=== PATIENT | male | born 1965 | race Caucasian/White ===

== ENCOUNTER 2017-03-23 16:35 | Emergency (ER) | payer MEDICAID ==
[~2017-03-23] VITALS: Ht 180.3 cm; Wt 81.6 kg
[~2017-03-23 16:35] MED LIST: AMOXICILLIN500 M2 PO; AUGMENTIN1 TA2 PO; BACTRIM DS 8001 TA1 PO; DARVOCET-N 1001 EACH PO; ETODOLAC200 MG PO; FLEXERIL10 MG PO; HYDROCODONE-APA1 TA2 PO; HYDROCODONE1 TABLET PO; IBU-8800 MG PO; LORTAB 10/3251 TAB PO; LORTAB 5/500 501 TAB PO; MEDROL 4MG. DOSE4 MG PO; MOTRIN600 MG PO; NAPROSYN 500MG500 MG PO; NAPROXEN SODIU500 MG PO; NOMEDS XX; PREDNISONE 10MG10 MG PO; PROTONIX 40MG T40 MG PO; SILVADENE CREAM50 GM TP; TAMIFLU75 MG PO; TESSALON PERLE100 MG PO; TRAMADOL50 M1 PO; ULTRAM 50 MG TA50 MG PO; VIBRAMYCIN 100100 MG PO; VICODIN 5/500 T1 TAB PO; VICOPROFEN 7.51 TAB PO; VOLTAREN75 MG PO; ZITHROMAX Z PA250 MG PO; ZOFRAN ODT4 MG PO
--- NOTE | 2017-03-23 16:59 | Emergency Room Report ---
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 N Clinical Suspician of Infection? N Mental Status: 1 - Regular (Normal Baseline) Sepsis Risk:Low Sepsis Risk Have you (or family members/close friends) recently traveled outside the [place]? N If Yes, where/when: Have you had exposure to infectious disease within the past month? N TB? Other? Specify: Source patient, RN notes reviewed, family, RN/MD Exam Limitations no limitations Comment This is a 51-year-old male patient arriving to the emergency room with neck pain, RIGHT shoulder pain, RIGHT elbow pain, RIGHT dorsal hand pain for the past 3 days. 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 Patient has any neurological deficit the RIGHT upper extremity. ALLERGIES Coded Allergies: hydrocodone (From LORTAB) (ITCHING/HIVES/STOMACH ACHE 12/18/15) History Medical History General CAD? No Angina: No [place]: No Hypertension? Yes Hyperlipidemia? No CHF? No DVT? No PE? No COPD? No Asthma? No Anemia? No GERD? No Gastric ulcers? No GI Bleed? No Hernia? No Thyroid Problems? No Hypothyroidism? No CVA? No Seizures? No Diabetes? No Insulin Dependent: No Insulin Pump: No Home FSBS? No Renal Insuffiency? No End Stage Renal Disease? No UTI? No Stones? No BPH? No GB Disease: Yes Nephritic Syndrome? No Asplenia? No Hepatitis? No Sickle Cell Disease? No Arthritis? Yes Migraines? No Cataracts? No Glaucoma? No MRSA? No HIV? No TB? No Anxiety? No Depression? No Cancer? No More? No Immunization Hx DT/Tetanus < 1 Year Ago Flu Refused Pneumonia Never Had Surgical Hx Previous Surgery?Y OPEN REDUCTION ON RIGHT H Cholecystectomy Family History Family Hx Diabetes Yes CAD Yes Hypertension Yes Hyperlipidemia Yes Cancer Yes TB No Social History Smoking Hx Smoker: Current Every Day Smoker Tobacco: Yes Type Cigarettes Packs/day 1 1/2 - 2 Packs Alcohol Alcohol: No Review of Systems All Other Systems Reviewed and Negative Musculoskeletal joint pain (RIGHT upper extremity pain), neck pain Physical Exam Vital Signs Vital Signs Date Time Temp Pulse Resp B/P Pulse O2 O2 Flow FiO2 Ox Delivery Rate 03/23 1640 97.8 88 18 154/96 99 General Appearance normal appearance, WD/WN, mild distress Neck normal inspection, non-tender, supple, full range of motion Respiratory Status Yes: trachea midline, chest symmetrical, non tender chest. No: respiratory distress. Lung Sounds bilateral: normal breath sounds, lungs clear. 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 No Comment Patient medically stable, in minimal distress, instructed to follow-up with Dr. Forbes per discharge instructions. Results/Orders Current Medication Orders Sig/Edgardo Start time Last Medication Dose Route Stop Time Status Admin Methylprednisolone 80 MG ONCE ONE 03/23 1700 AC Acetate IM 03/23 170 Departure Departure Time of Disposition 1658 Disposition DC Home or Self Care(routine) Clinical Impression Primary Impression: Tendinitis Condition STABLE Referrals Andrei FLYNN,Nazario Maynard (Family) as scheduled, if not better by the tiem of this appointment Patient Instructions DI for Tendinitis Additional Instructions Please take the medications prescribed as instructed, follow-up with Dr. Still if not better. Discharge Counseling Counseled pt/family regarding diagnosis, medications/RX, home care, follow up needs ED Critical Care Critical Care No at 1704
--- NOTE | 2017-03-23 16:59 | Emergency Room Report ---
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 N Clinical Suspician of Infection? N Mental Status: 1 - Regular (Normal Baseline) Sepsis Risk:Low Sepsis Risk Have you (or family members/close friends) recently traveled outside the [place]? N If Yes, where/when: Have you had exposure to infectious disease within the past month? N TB? Other? Specify: Source patient, RN notes reviewed, family, RN/MD Exam Limitations no limitations Comment This is a 51-year-old male patient arriving to the emergency room with neck pain, RIGHT shoulder pain, RIGHT elbow pain, RIGHT dorsal hand pain for the past 3 days. 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 Patient has any neurological deficit the RIGHT upper extremity. ALLERGIES Coded Allergies: hydrocodone (From LORTAB) (ITCHING/HIVES/STOMACH ACHE 12/18/15) History Medical History General CAD? No Angina: No [place]: No Hypertension? Yes Hyperlipidemia? No CHF? No DVT? No PE? No COPD? No Asthma? No Anemia? No GERD? No Gastric ulcers? No GI Bleed? No Hernia? No Thyroid Problems? No Hypothyroidism? No CVA? No Seizures? No Diabetes? No Insulin Dependent: No Insulin Pump: No Home FSBS? No Renal Insuffiency? No End Stage Renal Disease? No UTI? No Stones? No BPH? No GB Disease: Yes Nephritic Syndrome? No Asplenia? No Hepatitis? No Sickle Cell Disease? No Arthritis? Yes Migraines? No Cataracts? No Glaucoma? No MRSA? No HIV? No TB? No Anxiety? No Depression? No Cancer? No More? No Immunization Hx DT/Tetanus < 1 Year Ago Flu Refused Pneumonia Never Had Surgical Hx Previous Surgery?Y OPEN REDUCTION ON RIGHT H Cholecystectomy Family History Family Hx Diabetes Yes CAD Yes Hypertension Yes Hyperlipidemia Yes Cancer Yes TB No Social History Smoking Hx Smoker: Current Every Day Smoker Tobacco: Yes Type Cigarettes Packs/day 1 1/2 - 2 Packs Alcohol Alcohol: No Review of Systems All Other Systems Reviewed and Negative Musculoskeletal joint pain (RIGHT upper extremity pain), neck pain Physical Exam Vital Signs Vital Signs Date Time Temp Pulse Resp B/P Pulse O2 O2 Flow FiO2 Ox Delivery Rate 03/23 1640 97.8 88 18 154/96 99 General Appearance normal appearance, WD/WN, mild distress Neck normal inspection, non-tender, supple, full range of motion Respiratory Status Yes: trachea midline, chest symmetrical, non tender chest. No: respiratory distress. Lung Sounds bilateral: normal breath sounds, lungs clear. 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 No Comment Patient medically stable, in minimal distress, instructed to follow-up with Dr. Forbes per discharge instructions. Results/Orders Current Medication Orders Sig/Edgardo Start time Last Medication Dose Route Stop Time Status Admin Methylprednisolone 80 MG ONCE ONE 03/23 1700 AC Acetate IM 03/23 170 Departure Departure Time of Disposition 1658 Disposition DC Home or Self Care(routine) Clinical Impression Primary Impression: Tendinitis Condition STABLE Referrals Andrei FLYNN,Nazario Maynard (Family) as scheduled, if not better by the tiem of this appointment Patient Instructions DI for Tendinitis Additional Instructions Please take the medications prescribed as instructed, follow-up with Dr. Still if not better. Discharge Counseling Counseled pt/family regarding diagnosis, medications/RX, home care, follow up needs ED Critical Care Critical Care No at 1704
[2017-03-23 17:09] VITALS: BP 148/88
[2017-03-23] MEDS ORDERED: ETODOLAC200 MG PO (17:13)
== END 2017-03-23 17:14 | disposition home or self-care (01) ==
LOC: ER 16:35
DX: M77.9 Enthesopathy, unspecified (principal)
CPT/HCPCS: J1030

== ENCOUNTER 2017-05-09 11:15 | Emergency (ER) | payer MEDICAID ==
[~2017-05-09] VITALS: Ht 180.3 cm; Wt 78.9 kg
--- NOTE | 2017-05-09 11:33 | Emergency Room Report ---
History of Present Illness Time Seen by [id number] Presenting Problem in Triage Pt arrived:Walked Presenting Problem:PT REPORTS HAVING PAIN IN KELLEY LOWER LUNGS. PT DESCRIBES PAIN "PULLING AND STRETCHING" FEELING. PT REPORTS PAIN BEGAN LASTNIGHT. PT STATES HAS A DRY COUGH. 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 N Clinical Suspician of Infection? N Mental Status: 1 - Regular (Normal Baseline) Sepsis Risk:Low Sepsis Risk Have you (or family members/close friends) recently traveled outside the [place]? N If Yes, where/when: Have you had exposure to infectious disease within the past month? N TB? Other? Specify: Dry cough with some bronchospasm since last night; no sputum or fever; having pain in right back when coughing; no calf pain or swelling; no SOB. No chest pain. No syncope. No sore throat. ALLERGIES Coded Allergies: hydrocodone (From LORTAB) (ITCHING/HIVES/STOMACH ACHE 12/18/15) Home Medications Reported Medications No Known Home Medications History Medical History General CAD? No Angina: No [place]: No Hypertension? Yes Hyperlipidemia? No CHF? No DVT? No PE? No COPD? No Asthma? No Anemia? No GERD? No Gastric ulcers? No GI Bleed? No Hernia? No Thyroid Problems? No Hypothyroidism? No CVA? No Seizures? No Diabetes? No Insulin Dependent: No Insulin Pump: No Home FSBS? No Renal Insuffiency? No End Stage Renal Disease? No UTI? No Stones? No BPH? No GB Disease: Yes Nephritic Syndrome? No Asplenia? No Hepatitis? No Sickle Cell Disease? No Arthritis? Yes Migraines? No Cataracts? No Glaucoma? No MRSA? No HIV? No TB? No Anxiety? No Depression? No Cancer? No More? No Immunization Hx DT/Tetanus < 1 Year Ago Flu Refused Pneumonia Never Had Surgical Hx Previous Surgery?Y OPEN REDUCTION ON RIGHT H Cholecystectomy Family History Family Hx Diabetes Yes CAD Yes Hypertension Yes Hyperlipidemia Yes Cancer Yes TB No Social History Smoking Hx Smoker: Current Every Day Smoker Tobacco: Yes Type Cigarettes Packs/day 1 1/2 - 2 Packs Are you/the child exposed to second-hand smoke: Yes Alcohol Alcohol: No Review of Systems All Other Systems Reviewed and Negative Respiratory see HPI Physical Exam Vital Signs Vital Signs Date Time Temp Pulse Resp B/P Pulse O2 O2 Flow FiO2 Ox Delivery Rate 05/09 1147 22 05/09 1118 98.1 63 22 147/83 99 General Appearance normal appearance, WD/WN, no apparent distress Eye Exam - bilateral eye normal exam, bilateral eye PERRL, bilateral eye EOMI Neck normal inspection, non-tender, supple, full range of motion Respiratory Status Yes: trachea midline, chest symmetrical, tender on palpation. No: respiratory distress, non tender chest (tender R lat), use of accessory muscles, pain on inspiration, pain on expiration, productive cough, non productive cough. Lung Sounds bilateral: normal breath sounds, lungs clear. Cardiovascular normal exam, regular rate/rhythm, no peripheral edema, no gallop, no JVD, no murmur, no rub, normal peripheral pulses Gastrointestinal normal bowel sounds, normal exam, non tender, soft, no organomegaly, no pulsatile mass, no guarding, no rebound Back bowel/bladder continent, muscle spasm (R lat) Extremities non-tender, normal range of motion, normal inspection, normal capillary refill, no calf tenderness, no pedal edema Strength 5 Upper Ext (L), 5 Upper Ext (R), 5 Lower Ext (L), 5 Lower Ext (R) Neurologic alert, normal exam, no motor/sensory deficits, oriented x 3 Glascow Coma Scale Glascow Coma Scale Response Value EYE response: 4 Spontaneously 4 MOTOR response: 6 OBEYS 6 VERBAL response: 5 Oriented & Converses 5 Total 15 Skin intact, normal color, warm/dry Medical Decision Making LABS/Meds/Orders Pt receiving controlled substance in ED? No Results/Orders Current Medication Orders Sig/Edgardo Start time Last Medication Dose Route Stop Time Status Admin Ketorolac 0 .STK-MED ONE 05/09 1146 DC Tromethamine .ROUTE Ketorolac 60 MG ONCE ONE 05/09 1145 DC 05/09 Tromethamine IM 05/09 114 1147 Orders Procedure Date/time Status CHEST(2 VIEWS-NOT PORTABLE) 05/09 1127 Active XRAY/CT/US XRAY/CT/US XRAY chest XR interpretation by reviewed by me Xray Results normal/NAD, no infiltrates, normal heart size, normal lung inflation kelley (calcifications, small) Pulmonary Embolism Score WELL'S CRITERIA FOR PE WELL'S CRITERIA FOR PE Response Value Clinical signs/symptoms of DVT NO 0 PE is #1 diagnosis or equally likely NO 0 Heart rate is > 100 NO 0 Immobile at least 3 days, or surgery in past 4 wks NO 0 Previously, obj. diagnosed PE or DVT NO 0 Hemoptysis NO 0 Malignancy w/Rx within 6mo, or palliative NO 0 Total 0 Departure Departure Time of Disposition 1227 Disposition DC Home or Self Care(routine) Clinical Impression Primary Impression: Cough Condition STABLE Referrals Andrei FLYNN,Aditya Maynard Patient Instructions Cough Additional Instructions Zithromax, see your family doctor in two to three days, Rx Naproxen. Discharge Counseling Counseled pt/family regarding diagnosis, test results, medications/RX, home care, follow up needs Prescriptions Current Visit Scripts Azithromycin (Avpak Azithromycin) 250 MG PO DAILY #6 TAB One Zpack over five days as directed NAPROXEN (NAPROXEN 500MG TAB) 500 MG PO BIDP PRN pain #20 TAB ED Critical Care Critical Care No at 1230
[2017-05-09] MEDS ORDERED: NAPROXEN SODIU500 MG PO (12:28)
[2017-05-09] MEDS ORDERED: AVPAK AZITHROM250 MG PO (12:28)
[2017-05-09 12:54] VITALS: BP 147/83
--- NOTE | 2017-05-09 17:59 | RADIOLOGY REPORT PS360 ---
CHEST(2 VIEWS-NOT PORTABLE) HISTORY: PAIN IN KELLEY LUNG AREAS, COUGHpersistent cough. Patient Age: 51 years: Male Ordering Physician: Iman Gamboa MD TECHNIQUE: PA and lateral chest COMPARISON :Previous chest film from 12/17/2015 FINDINGS Otherwise was fairly clear with no active disease. Peripheral lung kaba unremarkable and stable. Clear. The heart myriam and mediastinal structures satisfactory. 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 The chest wall and T-spine intact. IMPRESSION: Stable chest nothing definitely acute
== END 2017-05-09 12:55 | disposition home or self-care (01) ==
LOC: ER 11:15
DX: R05 Cough (principal); F17.210 Nicotine dependence, cigarettes, uncomplicated; I10 Essential (primary) hypertension

== ENCOUNTER 2017-06-05 18:01 | Emergency (ER) | payer MEDICAID ==
[~2017-06-05] VITALS: Ht 180.3 cm; Wt 77.1 kg
[~2017-06-05 18:01] MED LIST changes: +AVPAK AZITHROM250 MG PO
[2017-06-05 18:21] LABS: URINE BILIRUBIN - DIPSTICK NEGATIVE (NEG); URINE BLOOD NEGATIVE (NEG)
[2017-06-05] MEDS ORDERED: IBU800 MG PO (18:30)
[2017-06-05] MEDS ORDERED: ZITHROMAX Z PA250 MG PO (18:30)
[2017-06-05] MEDS ORDERED: TESSALON PERLE100 M1 PO (18:30)
--- NOTE | 2017-06-05 18:31 | Emergency Room Report ---
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 N Clinical Suspician of Infection? N Mental Status: 1 - Regular (Normal Baseline) Sepsis Risk:Low Sepsis Risk Have you (or family members/close friends) recently traveled outside the [place]? N If Yes, where/when: Have you had exposure to infectious disease within the past month? N TB? Other? Specify: 51 years old white male smoker who developed upper respiratory congestion associated with cough productive of yellow-green material. It hurts to cough and his back. Source patient, RN notes reviewed Exam Limitations no limitations ALLERGIES Coded Allergies: hydrocodone (From LORTAB) (ITCHING/HIVES/STOMACH ACHE 12/18/15) Home Medications Active Scripts Azithromycin (Avpak Azithromycin) 250 MG PO DAILY #6 TAB Prov: 05/09/17 NAPROXEN (NAPROXEN 500MG TAB) 500 MG PO BIDP PRN pain #20 TAB Prov: 05/09/17 History Medical History General CAD? No Angina: No [place]: No Hypertension? Yes Hyperlipidemia? No CHF? No DVT? No PE? No COPD? No Asthma? No Anemia? No GERD? No Gastric ulcers? No GI Bleed? No Hernia? No Thyroid Problems? No Hypothyroidism? No CVA? No Seizures? No Diabetes? No Insulin Dependent: No Insulin Pump: No Home FSBS? No Renal Insuffiency? No End Stage Renal Disease? No UTI? No Stones? No BPH? No GB Disease: Yes Nephritic Syndrome? No Asplenia? No Hepatitis? No Sickle Cell Disease? No Arthritis? Yes Migraines? No Cataracts? No Glaucoma? No MRSA? No HIV? No TB? No Anxiety? No Depression? No Cancer? No More? No Immunization Hx DT/Tetanus < 1 Year Ago Flu Refused Pneumonia Never Had Surgical Hx Previous Surgery?Y OPEN REDUCTION ON RIGHT H Cholecystectomy Family History Family Hx Diabetes Yes CAD Yes Hypertension Yes Hyperlipidemia Yes Cancer Yes TB No Social History Smoking Hx Smoker: Current Every Day Smoker Tobacco: Yes Type Cigarettes Packs/day 1 1/2 - 2 Packs Alcohol Alcohol: No Review of Systems All Other Systems Reviewed and Negative Constitutional no symptoms reported Eyes no symptoms reported ENT no symptoms reported. Respiratory see HPI, cough Cardiovascular no symptoms reported Gastrointestinal no symptoms reported Genitourinary no symptoms reported. Musculoskeletal no symptoms reported Skin no symptoms reported Psychiatric/Neurological no symptoms reported Physical Exam Vital Signs Vital Signs Date Time Temp Pulse Resp B/P Pulse O2 O2 Flow FiO2 Ox Delivery Rate 06/05 1805 97.9 80 18 172/97 98 - WBC >12,000 or <4,000 or 10% bands? 2 or more SIRS Criteria Met? B/P:172/97 MAP:122 Creatinine >2.0? UA output<0.5ml/kg/hr for 2 hrs? Platelet count >100,000? Lactate >2.0mmol/1? INR >1.2 or PTT > than 60 sec? Evidence of Organ Dysfunction? Provider documented clinical suspician of infection? N Sepsis Criteria Count: 0 Sepsis Risk: Low Sepsis Risk General Appearance normal appearance, WD/WN Eye Exam - bilateral eye normal exam, bilateral eye PERRL, bilateral eye EOMI Ear, Nose, Throat hearing grossly normal, normal ENT inspection Neck normal inspection, non-tender, supple, full range of motion Respiratory Status Yes: trachea midline, chest symmetrical, non tender chest. No: respiratory distress. Lung Sounds bilateral: normal breath sounds, lungs clear. 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 No Results/Orders Laboratory Tests 06/05/171814: Urine Color YELLOW, Urine Appearance SL CLOUDY, Urine pH 6.0, Ur Specific [place] 1.020, Urine Protein NEGATIVE, Urine Ketones NEGATIVE, Urine Blood NEGATIVE, Urine Nitrate NEGATIVE, Urine Bilirubin NEGATIVE, Urine Urobilinogen 1.0, Ur Leukocyte Esterase NEGATIVE, Urine WBC 5-10, Urine Bacteria 3+, Urine Mucus 4+, Urine Glucose NEGATIVE 06/05/171810: Sodium Cancelled, Potassium Cancelled, Chloride Cancelled, Carbon Dioxide Cancelled, BUN Cancelled, Creatinine Cancelled, Estimated Creat Clear Cancelled, Estimated GFR (MDRD) Cancelled, Glucose Cancelled, Calcium Cancelled, Total Bilirubin Cancelled, AST Cancelled, ALT Cancelled, Alkaline Phosphatase Cancelled, Total Protein Cancelled, Albumin Cancelled, Globulin Cancelled, Albumin/Globulin Ratio Cancelled, WBC Cancelled, RBC Cancelled, Hgb Cancelled, Hct Cancelled, MCV Cancelled, RDW Cancelled, Plt Count Cancelled, Gran % Cancelled, Gran # Cancelled, Lymphocytes % Cancelled, Eosinophils % Cancelled, Basophils % Cancelled, Lymphocytes # Cancelled, Eosinophils # Cancelled, Basophils # Cancelled, PUBS MCHC Cancelled, MCH Cancelled Current Medication Orders Sig/Edgardo Start time Last Medication Dose Route Stop Time Status Admin Sodium Chloride 10 ML PRN PRN 06/05 1815 DC IV 06/06 1811 Orders Procedure Date/time Status URINALYSIS/COMPLETE 06/05 1811 Complete Departure Departure Time of Disposition 1827 Disposition DC Home or Self Care(routine) Clinical Impression Primary Impression: URTI (acute upper respiratory infection) Secondary Impressions: Bronchitis, Tobacco use Condition STABLE Referrals Andrei FLYNN,Nazario Maynard (Family) Additional Instructions The patient requested antibiotic injection he will be given Rocephin and Toradol for body aches. Started on Z-Grzegorz and cough medicine. He will need to stop smoking and follow-up with Dr. Still in the morning. Discharge Counseling Counseled pt/family regarding diagnosis, test results, medications/RX, home care, follow up needs Prescriptions Current Visit Scripts Azithromycin (Zithromycin (Z-GRZEGORZ) 250MG Tab) 250 MG PO DAILY #6 TAB Ibuprofen (MOTRIN 800MG (generic) Tablet) 800 MG PO Q8HP PRN pain #15 TAB Benzonatate (Tessalon Perle) 100 MG PO Q4HP PRN cough #28 SGL ED Critical Care Critical Care No If Critical Care minutes are documented, the time involved in the performance of seperately reportable procedures was not counted toward critical care time documented. I directly delivered medical care to this critically ill and/or injured patient. Timely evaluation and treatment was necessary to address the significant organ system(s) dysfunction present in this patient. at [id number]
[2017-06-05 18:52] VITALS: BP 164/88
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
--- OUTSIDE RECORDS SUMMARY | 2017-06-10 21:49 | External Medical Summary Rpt ---
Author Author ANNEL Tsang, ANNEL Production Organization [employer] Address Unknown Phone Unavailable Results Urinalysis dipstick W Reflex Microscopic panel in Urine Observa Value Referen Units Interpr Notes Date tion ce etation Range Appeara SL CLEAR No No No May 8 nce of CLOUDY informa informa informa 2017 Urine tion in tion in tion in 6:15 PM source source source data data data Bilirub NEGATIV NEG No No No Jun 05 in E informa informa informa 2016 [Presen tion in tion in tion in 6:15 PM ce] in source source source Urine data data data by Test strip Erythro NEGATIV NEG No No No May 8 cytes E informa informa informa 2016 [Presen tion in tion in tion in 6:15 PM ce] in source source source Urine data data data Color YELLOW YELLOW No No No May 8 of informa informa informa 2016 Urine tion in tion in tion in 6:15 PM source source source data data data Glucose NEG No No No May 8 [Mass/vol informati informati informati 2017 6:15 ume] in on in on in on in PM Urine by source source source Test data data data strip Ketones NEGATIV NEG mg/dL No No May 8 E informa informa 2016 [Presen tion in tion in 6:15 PM ce] in source source Urine data data by Automat ed test strip Mucus NEGATIV NEG No No No May 8 [Presen E informa informa informa 2016 ce] in tion in tion in tion in 6:15 PM Urine source source source sedimen data data data t by Light microsc opy Nitrite NEGATIV NEG No No No May 8 E informa informa informa 2016 [Presen tion in tion in tion in 6:15 PM ce] in source source source Urine data data data by Test strip pH of 5.0 - 8.5 No Normal No Oct 8 Urine informati informati 2017 6:15 on in on in PM source source data data Protein NEG mg/dL No No May 8 [Mass/vol informati informati 2017 6:15 ume] in on in on in PM Urine by source source Automated data data test strip Specific 1.005 - No Normal No Jun 05 gravity 1.030 informati informati 2017 6:15 of Urine on in on in PM source source data data Urobili 1.0 NEG E.U./dL No No Jun 05 nogen informa informa 2017 [Presen tion in tion in 6:15 PM ce] in source source Urine data data by Test strip
--- OUTSIDE RECORDS SUMMARY | 2017-06-10 21:49 | External Medical Summary Rpt ---
Author Author ANNEL Tasng, ANNEL Production Organization [employer] Address Unknown [...]
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
--- OUTSIDE RECORDS SUMMARY | 2017-06-10 21:49 | External Medical Summary Rpt | CCD ---
Demographics Preferred Language Citizen Of [place] Marital Status Unknown Yazdanism Affiliation Unknown Race Unknown Ethnic Group Unknown Author Author , ANNEL UP Address Unknown Phone Immunization Unable to retrieve immunization data due to connection failure with Immunization Registry. Please try again later.
--- OUTSIDE RECORDS SUMMARY | 2017-06-10 21:49 | External Medical Summary Rpt | CCD ---
Demographics Preferred Language Estonian Marital Status Unknown Sikhism Affiliation Unknown Race Unknown Ethnic Group Unknown Author Author , ANNEL UP Address Unknown Phone Immunization Unable to retrieve immunization data due to connection failure with Immunization Registry. Please try again later.
== END 2017-06-05 19:01 | disposition home or self-care (01) ==
LOC: ER 18:01
PROVIDERS: Emergency Medicine
DX: J06.9 Acute upper respiratory infection, unspecified (principal); F17.210 Nicotine dependence, cigarettes, uncomplicated; I10 Essential (primary) hypertension

== ENCOUNTER 2017-06-14 19:22 | Emergency (ER) | payer MEDICAID ==
[~2017-06-14] VITALS: Ht 180.3 cm; Wt 77.1 kg
[~2017-06-14 19:22] MED LIST changes: +IBU800 MG PO; +TESSALON PERLE100 M1 PO
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
--- OUTSIDE RECORDS SUMMARY | 2017-06-14 19:45 | External Medical Summary Rpt ---
Author Author ANNEL Tsang, ANNEL Production Organization [employer] Address Unknown Phone Unavailable Results Urinalysis dipstick W Reflex Microscopic panel in Urine Observa Value Referen Units Interpr Notes Date tion ce etation Range Appeara SL CLEAR No No No Jun 05 nce of CLOUDY informa informa informa 2017 Urine tion in tion in tion in 6:15 PM source source source data data data Bacteri 3+ O No No No Jun 05 a informa informa informa 2016 [Presen tion in tion in tion in 6:15 PM ce] in source source source Urine data data data sedimen t by Light microsc opy Bilirub NEGATIV NEG No No No Jun 05 in E informa informa informa 2016 [Presen tion in tion in tion in 6:15 PM ce] in source source source Urine data data data by Test strip Erythro NEGATIV NEG No No No Jun 05 cytes E informa informa informa 2016 [Presen tion in tion in tion in 6:15 PM ce] in source source source Urine data data data Color YELLOW YELLOW No No No Jun 05 of informa informa informa 2016 Urine tion in tion in tion in 6:15 PM source source source data data data Glucose NEG No No No Jun 05 [Mass/vol informati informati informati 2016 6:15 ume] in on in on in on in PM Urine by source source source Test data data data strip Ketones NEGATIV NEG mg/dL No No Jun 05 E informa informa 2016 [Presen tion in tion in 6:15 PM ce] in source source Urine data data by Automat ed test strip Mucus NEGATIV NEG No No No Jun 05 [Presen E informa informa informa 2016 ce] in tion in tion in tion in 6:15 PM Urine source source source sedimen data data data t by Light microsc opy Mucus 4+ NONE No No No Jun 05 [Presen informa informa informa 2016 ce] in tion in tion in tion in 6:15 PM Urine source source source sedimen data data data t by Light microsc opy Nitrite NEGATIV NEG No No No Jun 05 E informa informa informa 2016 [Presen tion in tion in tion in 6:15 PM ce] in source source source Urine data data data by Test strip pH of 5.0 - 8.5 No Normal No Jun 05 Urine informati informati 2016 6:15 on in on in PM source source data data Protein NEG mg/dL No No Jun 05 [Mass/vol informati informati 2017 6:15 ume] in on in on in PM Urine by source source Automated data data test strip Specific 1.005 - No Normal No Jun 05 gravity 1.030 informati informati 2016 6:15 of Urine on in on in PM source source data data Urobili 1.0 NEG E.U./dL No No Jun 05 nogen informa informa 2016 [Presen tion in tion in 6:15 PM ce] in source source Urine data data by Test strip Leukocy [5 O wbc/hpf No No May 8 mel wbc/hpf informa informa 2016 [#/volu ; 10 tion in tion in 6:15 PM me] in wbc/hpf source source Urine ] data data Urinalysis dipstick W Reflex Microscopic panel in Urine Observa Value Referen Units Interpr Notes Date tion ce etation Range Appeara SL CLEAR No No No Jun 05 nce of CLOUDY informa informa informa 2017 Urine tion in tion in tion in 6:15 PM source source source data data data Bilirub NEGATIV NEG No No No Jun 05 in E informa informa informa 2016 [Presen tion in tion in tion in 6:15 PM ce] in source source source Urine data data data by Test strip Erythro NEGATIV NEG No No No Jun 05 cytes E informa informa informa 2016 [Presen tion in tion in tion in 6:15 PM ce] in source source source Urine data data data Color YELLOW YELLOW No No No Jun 05 of informa informa informa 2017 Urine tion in [...] opy Nitrite NEGATIV NEG No No No Jun 05 E informa informa informa 2016 [Presen tion in tion in tion in 6:15 PM ce] in source source source Urine data data data by Test strip pH of 5.0 - 8.5 No Normal No May 8 Urine informati informati 2017 6:15 on in on in PM source source data data Protein NEG mg/dL No No May 8 [Mass/vol informati informati 2017 6:15 ume] in on in on in PM Urine by source source Automated data data test strip Specific 1.005 - No Normal No May 8 gravity 1.030 informati informati 2017 6:15 of Urine on in on in PM source source data data Urobili 1.0 NEG E.U./dL No No May 8 nogen informa informa 2016 [Presen tion in tion in 6:15 PM ce] in source source Urine data data by Test strip
--- OUTSIDE RECORDS SUMMARY | 2017-06-14 19:45 | External Medical Summary Rpt | CCD ---
Demographics Preferred Language Maldivian Marital Status Unknown Quaker Affiliation Unknown Race Unknown Ethnic Group Unknown Author Author , ANNEL UP Address Unknown Phone Immunization No patient found.
--- OUTSIDE RECORDS SUMMARY | 2017-06-14 19:45 | External Medical Summary Rpt | CCD ---
Demographics Preferred Language Israeli Marital Status Unknown Alevism Affiliation Unknown Race Unknown Ethnic Group Unknown Author Author , ANNEL UP Address Unknown Phone Immunization No patient found.
--- NOTE | 2017-06-14 20:13 | Emergency Room Report ---
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 N Clinical Suspician of Infection? N Mental Status: 1 - Regular (Normal Baseline) Sepsis Risk:Low Sepsis Risk Have you (or family members/close friends) recently traveled outside the [place]? N If Yes, where/when: Have you had exposure to infectious disease within the past month? N TB? Other? Specify: Source patient, RN notes reviewed, family, old records Exam Limitations no limitations Comment pt with acute nontraumatic lower back pain with hx of back pain with rad to rt lower leg with neurovascular ok but pos slr on rt at 20 degrees - no b/b and no cauda equina Cardiac Chest Pain Chest pain indicative of cardiac No Timing/Duration this evening Severity moderate ALLERGIES Coded Allergies: hydrocodone (From LORTAB) (ITCHING/HIVES/STOMACH ACHE 12/18/15) Home Medications Active Scripts Azithromycin (Zithromycin (Z-ALBARO) 250MG Tab) 250 MG PO DAILY #6 TAB Prov: 06/05/17 Ibuprofen (MOTRIN 800MG (generic) Tablet) 800 MG PO Q8HP PRN pain #15 TAB Prov: 06/05/17 Benzonatate (Tessalon Perle) 100 MG PO Q4HP PRN cough #28 SGL Prov: 06/05/17 Discontinued Scripts NAPROXEN (NAPROXEN 500MG TAB) 500 MG PO BIDP PRN pain #20 TAB Prov: 05/09/17 DC: 06/07/17 0000 Reported Medications No Home Medications (NO HOME MEDICATIONS) 1 EACH XX ONCE History Medical History General CAD? No Angina: No [place]: No Hypertension? Yes Hyperlipidemia? No CHF? No DVT? No PE? No COPD? No Asthma? No Anemia? No GERD? No Gastric ulcers? No GI Bleed? No Hernia? No Thyroid Problems? No Hypothyroidism? No CVA? No Seizures? No Diabetes? No Insulin Dependent: No Insulin Pump: No Home FSBS? No Renal Insuffiency? No End Stage Renal Disease? No UTI? No Stones? No BPH? No GB Disease: Yes Nephritic Syndrome? No Asplenia? No Hepatitis? No Sickle Cell Disease? No Arthritis? Yes Migraines? No Cataracts? No Glaucoma? No MRSA? No HIV? No TB? No Anxiety? No Depression? No Cancer? No More? No Immunization Hx DT/Tetanus < 1 Year Ago Flu Refused Pneumonia Never Had Surgical Hx Previous Surgery?Y OPEN REDUCTION ON RIGHT H Cholecystectomy Family History Family Hx Diabetes Yes CAD Yes Hypertension Yes Hyperlipidemia Yes Cancer Yes TB No Social History Smoking Hx Smoker: Current Every Day Smoker Tobacco: Yes Type Cigarettes Packs/day 1 1/2 - 2 Packs Alcohol Alcohol: No Drugs none Review of Systems All Other Systems Reviewed and Negative Constitutional denies fever Eyes denies drainage ENT denies: ear discharge, epistaxis. Respiratory denies cough, denies shortness of breath, denies wheezing Cardiovascular denies chest pain, denies syncope Gastrointestinal denies abdominal pain, denies vomiting Genitourinary denies: dysuria, frequency, hesitancy, hematuria. Musculoskeletal see HPI, back pain, denies joint pain, denies neck pain Skin denies rash Psychiatric/Neurological denies headache, denies seizure Physical Exam Vital Signs Vital Signs Date Time Temp Pulse Resp B/P Pulse O2 O2 Flow FiO2 Ox Delivery Rate 06/14 2021 78 20 147/98 99 06/14 1959 20 06/14 1927 97.9 81 22 153/100 100 - WBC >12,000 or <4,000 or 10% bands? 2 or more SIRS Criteria Met? B/P:147/98 MAP:117 Creatinine >2.0? UA output<0.5ml/kg/hr for 2 hrs? Platelet count >100,000? Lactate >2.0mmol/1? INR >1.2 or PTT > than 60 sec? Evidence of Organ Dysfunction? Provider documented clinical suspician of infection? N Sepsis Criteria Count: 1 Sepsis Risk: Low Sepsis Risk General Appearance no apparent distress Eye Exam - bilateral eye PERRL, bilateral eye EOMI Ear, Nose, Throat normal ENT inspection Neck supple Respiratory Status No: respiratory distress. Cardiovascular regular rate/rhythm Peripheral Pulses Pulses normal Yes Gastrointestinal soft, no organomegaly, no pulsatile mass, no guarding, no rebound Back no CVA tenderness Extremities normal inspection Strength 4 Upper Ext (L), 4 Upper Ext (R), 4 Lower Ext (L), 4 Lower Ext (R) Neurologic alert, state's attorney II-XII nml as tested, no motor/sensory deficits Reflexes Reflexes normal No Mental status normal mood/affect Skin intact Medical Decision Making LABS/Meds/Orders Pt receiving controlled substance in ED? No Results/Orders Laboratory Tests 06/14/171939: Sodium 141, Potassium 3.8, Chloride 105, Carbon Dioxide 27, BUN 8, Creatinine 0.8, Estimated Creat Clear 122, Estimated GFR (MDRD) 103, Glucose 86, Calcium 9.2, Total Bilirubin 0.4, AST 38 H, ALT 47, Alkaline Phosphatase 65, Total Protein 8.1, Albumin 3.9, Globulin 4.2 H, Albumin/Globulin Ratio 0.9 L, WBC 11.3 H, RBC 4.68, Hgb 14.9, Hct 45.5, MCV 97.4, RDW 13.7, Plt Count 324, MPV 7.8, Gran % 56.1, Gran # 6.3, Lymphocytes % 34.9, Monocytes % 5.8, Eosinophils % 1.9, Basophils % 1.3, Lymphocytes # 3.9, Monocytes # 0.7, Eosinophils # 0.2, Basophils # 0.1, PUBS MCHC 32.7, MCH 31.8 H Current Medication Orders Sig/Edgardo Start time Last Medication Dose Route Stop Time Status Admin Ketorolac 30 MG ONCE ONE 06/14 2000 DC 06/14 Tromethamine IV 06/14 Ondansetron HCl 4 MG ONCE ONE 06/14 2000 DC 06/14 IV 06/14 Sodium Chloride 10 ML PRN PRN 06/14 2000 AC IV 06/15 1954 Sodium Chloride 1,000 ML .Q1H1M 06/14 2000 DC 06/14 IV 06/14 Sodium Chloride 10 ML PRN PRN 06/14 2000 AC IV 06/15 1955 Ketorolac 0 .STK-MED ONE 06/14 1956 DC Tromethamine .ROUTE Ondansetron HCl 0 .STK-MED ONE 06/14 1956 DC .ROUTE Sodium Chloride 1,000 ML .STK-MED ONE 06/14 1948 DC IV Orders Procedure Date/time Status DIET-NOTHING BY MOUTH 06/[address] ABD & PELVIS W/O CONTRAST 06/[address] ABD/PELVIS REQ 06/14 1954 Complete IV SALINE LOCK 06/14 1954 Active URINALYSIS/COMPLETE 06/14 1954 Active CBC WITH AUTO DIFF 06/14 1954 Complete CHEM 12 PROFILE 06/14 1954 Complete XRAY/CT/US XRAY/CT/US CT abdomen, pelvis CT interpretation by discussed w/radiologist Time results known: 2116 CT Results no fracture seen Departure Departure Time of Disposition 2117 Disposition DC Home or Self Care(routine) Clinical Impression Primary Impression: Lumbar disc disease with radiculopathy Condition STABLE Referrals Andrei FLYNN,Nazario Maynard (Family) Patient Instructions DI for Lumbar Radiculopathy Additional Instructions use meds and see pcp for follow up Discharge Counseling Counseled pt/family regarding diagnosis, test results, medications/RX, follow up needs Prescriptions Current Visit Scripts Prednisone (Prednisone 20MG) 20 MG PO BID #10 TAB Cyclobenzaprine Hcl (Flexeril) 10 MG PO BID #14 TAB OXYCODONE HCL/ACETAMINOPHEN (Percocet 5-325 MG Tablet) 1 TAB PO Q8HP PRN pain #7 TAB ED Critical Care Critical Care No at 2120
[2017-06-14 20:17] LABS: HEMOGLOBIN 14.9 g/dL (14.1-18.0); LYMPH # 3.9 K/mm3 (0.7-4.5); LYMPH % 34.9 % (10-50)
[2017-06-14] MEDS ORDERED: NOMEDS XX (20:34)
[2017-06-14] MEDS ORDERED: FLEXERIL10 MG PO (21:20)
[2017-06-14] MEDS ORDERED: PERCOCET1 TAB PO (21:20)
[2017-06-14] MEDS ORDERED: PREDNISONE 20MG20 MG PO (21:20)
[2017-06-14 21:56] VITALS: BP 147/98
--- NOTE | 2017-06-15 05:27 | RADIOLOGY REPORT PS360 ---
CT ABD PELVIS W/O CONTRAST CLINICAL INDICATION: Right flank pain with history of kidney stones ORDERING PHYSICIAN: Aditya Forbes MD PATIENT AGE: 51 years COMPARISON: 01/14/2016 TECHNIQUE: Axial images obtained with sagittal and coronal reformats. PROCEDURE: Oral Contrast: None IV Contrast: None . FINDINGS: Lower thorax: No acute finding ABDOMEN: Liver: No masses or biliary dilatation. Gallbladder: Prior cholecystectomy. No biliary dilatation Pancreas: No masses or peripancreatic fluid collections. Spleen: Unremarkable. Adrenals: Unremarkable Kidneys/ureters: No masses. No renal calculi. No hydronephrosis. No perinephric fluid collections. No ureteral dilatation or obvious ureteral calculi. Stomach bowel: The ascending and transverse colon appear thickened and may be due to nondistention or colitis. No evidence of diverticulitis. Appendix: No evidence of appendicitis. PELVIS: Reproductive: Unremarkable Bladder: Nondistended. No obvious stones or masses. ABDOMEN & PELVIS: Peritoneum: No abnormal fluid collections. No obvious inflammatory changes. No free air. Lymph nodes: No enlarged lymph nodes apparent. Vasculature: No evidence of abdominal aortic aneurysm. No retroperitoneal hemorrhage evident. Bones: No acute fracture IMPRESSION: 1. No evidence of obstructing ureteral calculus or appendicitis. 2. Possible colitis of the ascending and transverse colon versus nondistended bowel
== END 2017-06-14 21:56 | disposition home or self-care (01) ==
LOC: ER 19:22
PROVIDERS: Emergency Medicine
DX: M51.16 Intervertebral disc disorders with radiculopathy, lumbar region (principal); F17.210 Nicotine dependence, cigarettes, uncomplicated; I10 Essential (primary) hypertension
CPT/HCPCS: J2405

== ENCOUNTER 2017-06-16 15:56 | Emergency (ER) | payer MEDICAID ==
[~2017-06-16] VITALS: Ht 180.3 cm; Wt 77.1 kg
[~2017-06-16 15:56] MED LIST changes: +PERCOCET1 TAB PO; +PREDNISONE 20MG20 MG PO
--- NOTE | 2017-06-16 16:12 | Emergency Room Report ---
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 N Clinical Suspician of Infection? N Mental Status: 1 - Regular (Normal Baseline) Sepsis Risk:Low Sepsis Risk Have you (or family members/close friends) recently traveled outside the [place]? N If Yes, where/when: Have you had exposure to infectious disease within the past month? N TB? Other? Specify: Chronic back pain, out of Percocet written by Dr. Forbes. No new neurological sx. Already on steroids and Flexeril, not taking NSAID's. ALLERGIES Coded Allergies: hydrocodone (From LORTAB) (ITCHING/HIVES/STOMACH ACHE 12/18/15) Home Medications Active Scripts Prednisone (Prednisone 20MG) 20 MG PO BID #10 TAB Prov: 06/14/17 Cyclobenzaprine Hcl (Flexeril) 10 MG PO BID #14 TAB Prov: 06/14/17 OXYCODONE HCL/ACETAMINOPHEN (Percocet 5-325 MG Tablet) 1 TAB PO Q8HP PRN pain #7 TAB Prov: 06/14/17 Azithromycin (Zithromycin (Z-ALBARO) 250MG Tab) 250 MG PO DAILY #6 TAB Prov: 06/05/17 Ibuprofen (MOTRIN 800MG (generic) Tablet) 800 MG PO Q8HP PRN pain #15 TAB Prov: 06/05/17 Benzonatate (Tessalon Perle) 100 MG PO Q4HP PRN cough #28 SGL Prov: 06/05/17 Reported Medications No Home Medications (NO HOME MEDICATIONS) 1 EACH XX ONCE History Medical History General CAD? No Angina: No [place]: No Hypertension? Yes Hyperlipidemia? No CHF? No DVT? No PE? No COPD? No Asthma? No Anemia? No GERD? No Gastric ulcers? No GI Bleed? No Hernia? No Thyroid Problems? No Hypothyroidism? No CVA? No Seizures? No Diabetes? No Insulin Dependent: No Insulin Pump: No Home FSBS? No Renal Insuffiency? No End Stage Renal Disease? No UTI? No Stones? No BPH? No GB Disease: Yes Nephritic Syndrome? No Asplenia? No Hepatitis? No Sickle Cell Disease? No Arthritis? Yes Migraines? No Cataracts? No Glaucoma? No MRSA? No HIV? No TB? No Anxiety? No Depression? No Cancer? No More? No Immunization Hx DT/Tetanus < 1 Year Ago Flu Refused Pneumonia Never Had Surgical Hx Previous Surgery?Y OPEN REDUCTION ON RIGHT H Cholecystectomy Family History Family Hx Diabetes Yes CAD Yes Hypertension Yes Hyperlipidemia Yes Cancer Yes TB No Social History Smoking Hx Smoker: Current Every Day Smoker Tobacco: Yes Type Cigarettes Packs/day 1 1/2 - 2 Packs Alcohol Alcohol: No Review of Systems All Other Systems Reviewed and Negative Musculoskeletal back pain Psychiatric/Neurological denies see HPI Physical Exam Vital Signs Vital Signs Date Time Temp Pulse Resp B/P Pulse O2 O2 Flow FiO2 Ox Delivery Rate 06/16 1736 18 06/16 1606 98.0 87 18 146/87 99 General Appearance normal appearance, WD/WN, no apparent distress Eye Exam - bilateral eye normal exam Neck normal inspection, non-tender, supple, full range of motion Respiratory Status Yes: trachea midline, chest symmetrical, non tender chest. No: respiratory distress, tender on palpation, use of accessory muscles, pain on inspiration, pain on expiration. Lung Sounds bilateral: normal breath sounds, lungs clear. Cardiovascular normal exam, regular rate/rhythm, no peripheral edema, no gallop, no JVD, no murmur, no rub, normal peripheral pulses Gastrointestinal normal bowel sounds, normal exam, non tender, soft, no organomegaly, no pulsatile mass, no guarding, no rebound Back normal inspection, no vertebral tenderness, bowel/bladder continent, gait normal, strt leg raising(L)-NML, strt leg raising(R)-NML (subjective pain B glutes) Extremities non-tender, normal range of motion, normal inspection, normal capillary refill, no calf tenderness, no pedal edema Strength 5 Upper Ext (L), 5 Upper Ext (R), 5 Lower Ext (L), 5 Lower Ext (R) Neurologic alert, normal exam, no motor/sensory deficits, oriented x 3 (gait steady tiptoes/heels) Glascow Coma Scale Glascow Coma Scale Response Value EYE response: 4 Spontaneously 4 MOTOR response: 6 OBEYS 6 VERBAL response: 5 Oriented & Converses 5 Total 15 Reflexes DTR 4+ knee (R), 4+ knee (L) Skin intact, normal color, warm/dry, no rash cons.w/shingles Medical Decision Making LABS/Meds/Orders Pt receiving controlled substance in ED? No Results/Orders Current Medication Orders Sig/Edgardo Start time Last Medication Dose Route Stop Time Status Admin Ketorolac 0 .STK-MED ONE 06/16 1733 DC Tromethamine .ROUTE Ketorolac 60 MG ONCE ONE 06/16 1730 DC 06/16 Tromethamine IM 06/16 Departure Departure Time of Disposition 1736 Disposition DC Home or Self Care(routine) Clinical Impression Primary Impression: Chronic low back pain Qualifiers: Back pain laterality: bilateral Sciatica presence: without sciatica Qualified Code: M54.5 - Low back pain Condition STABLE Referrals Andrei FLYNN,Nazario Maynard (Family) Patient Instructions Low Back Pain Additional Instructions Continue current medications; any narcotics refills per Dr. Forbes for chronic condition; Rx Naproxen, see Dr. Forbes in two to five days for recheck. Discharge Counseling Counseled pt/family regarding diagnosis, medications/RX, home care, follow up needs Prescriptions Current Visit Scripts NAPROXEN (NAPROXEN 500MG TAB) 500 MG PO BIDP PRN pain #20 TAB ED Critical Care Critical Care No at 1738
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
--- OUTSIDE RECORDS SUMMARY | 2017-06-16 16:22 | External Medical Summary Rpt ---
Author Author [facility] [employer], [facility] [employer] Organization [facility] [employer] Address Unknown Phone Unavailable Results Comprehensive metabolic 2000 panel in Serum or Plasma Observa Value Referen Units Interpr Notes Date tion ce etation Range Albumin/G 1.1 - 1.8 No Low No Jun 14 lobulin informati informati 2016 7:40 [Mass on in on in PM ratio] in source source Serum or data data Plasma Albumin 3.4 - 5.0 gm/dL Normal No Jun 14 [Mass/vol informati 2016 7:40 ume] in on in PM Serum or source Plasma data Alkaline 46 - 116 U/L Normal No Jun 14 phosphata informati 2016 7:40 se on in PM [Enzymati source c data activity/ volume] in Serum or Plasma Bilirubin 0.2 - 1.0 mg/dL Normal No Jun 14 .total informati 2016 7:40 [Mass/vol on in PM ume] in source Serum or data Plasma Urea 7 - 18 mg/dL Normal No Jun 14 nitrogen informati 2016 7:40 [Mass/vol on in PM ume] in source Serum or data Plasma Calcium 8.5 - mg/dL Normal No Jun 14 [Mass/vol 10.1 informati 2016 7:40 ume] in on in PM Serum or source Plasma data Chloride 98 - 107 mmoL/L Normal No Jun 14 [Moles/vo informati 2016 7:40 lume] in on in PM Serum or source Plasma data Carbon 21.0 - mmoL/L Normal No Jun 14 dioxide, 32.0 informati 2017 7:40 total on in PM [Moles/vo source lume] in data Serum or Plasma Creatinin 0.70 - mg/dL Normal No Jun 14 e 1.30 informati 2017 7:40 [Mass/vol on in PM ume] in source Serum or data Plasma Creatinin 50 - 200 ML/MIN Normal No May 17 e renal informati 2017 7:40 clearance on in PM source predicted data by Cockcroft -Gault formula Estimated >60 ML/MIN No REFERENCE Jun 14 informati RANGE: 2017 7:40 glomerula on in >60 PM r source ML/MIN/1. filtratio data 73 SQUARE n rate METERSIf (GF this patient is -A merican, then multiply theresult by 1.210. Globulin 1.3 - 3.2 gm/dL High No Jun 14 [Mass/vol informati 2016 7:40 ume] in on in PM Serum source data Glucose 74 - 106 mg/dL Normal No Jun 14 [Mass/vol informati 2016 7:40 ume] in on in PM Serum or source Plasma data Potassium 3.5 - 5.1 mmoL/L Normal No Jun 142016 7:40 [Moles/vo on in PM lume] in source Serum or data Plasma Sodium 136 - 145 mmoL/L Normal No Jun 14 [Moles/vo informati 2016 7:40 lume] in on in PM Serum or source Plasma data Aspartate 15 - 37 U/L High No Jun 142016 7:40 aminotran on in PM sferase source [Enzymati data c activity/ volume] in Serum or Plasma Alanine 12 - 78 U/L Normal No Jun 14 aminotran 2016 7:40 sferase on in PM [Enzymati source c data activity/ volume] in Serum or Plasma Protein 6.4 - 8.2 gm/dL Normal No Jun 14 [Mass/vol informati 2016 7:40 ume] in on in PM Serum or source Plasma data CBC W Auto Differential panel in Blood Observa Value Referen Units Interpr Notes Date tion ce etation Range Basophils 0 - 0.2 K/MM3 Normal No Jun 142016 7:40 [#/volume on in PM ] in source Blood by data Automated count Basophils 0.1 - 2.0 % Normal No Jun 14 informati 2016 7:40 leukocyte on in PM s in source Blood by data Automated count Eosinophi 0.0 - 0.4 K/mm3 Normal No Jun 14 ls informati 2016 7:40 [#/volume on in PM ] in source Blood by data Automated count Eosinophi 0.1 - % Normal No Jun 14 ls/100 12.0 informati 2016 7:40 leukocyte on in PM s in source Blood by data Automated count Granulocy 1.3 - 8.0 K/mm3 Normal No Jun 14 mel ati 2016 7:40 [#/volume on in PM ] in source Blood by data Automated count Granulocy 37.0 - % Normal No Jun 14 mel/100 80.0 informati 2016 7:40 leukocyte on in PM s in source Blood by data Automated count Hematocri 42.0 - % Normal No Jun 14 t [Volume 52.0 informati 2016 7:40 on in PM Fraction] source of Blood data Hemoglobi 14.1 - g/dL Normal No Jun 14 n 18.0 informati 2016 7:40 [Mass/vol on in PM ume] in source Blood data Lymphocyt 0.7 - 4.5 K/mm3 Normal No Jun 14 es informati 2016 7:40 [#/volume on in PM ] in source Unspecifi data ed specimen by Automated count Lymphocyt 10 - 50 % Normal No Jun 14 es informati 2016 7:40 [#/volume on in PM ] in source Unspecifi data ed specimen by Automated count Erythrocy 27 - 31.2 pg High No Jun 14 te mean informati 2016 7:40 corpuscul on in PM ar source hemoglobi data n [Entitic mass] Erythrocy 31.8 - g/dl Normal No Jun 14 te mean 35.4 informati 2016 7:40 corpuscul on in PM ar source hemoglobi data n concentra tion [Mass/vol ume] by Automated count Erythrocy 82.2 - fl Normal No Jun 14 te mean 97.8 informati 2016 7:40 corpuscul on in PM ar volume source [Entitic data volume] by Automated count Monocytes 0.1 - 1.0 K/mm3 Normal No Jun 14 informati 2016 7:40 [#/volume on in PM ] in source Blood by data Automated count Monocytes 1.7 - 9.3 % Normal No Jun 14 / informati 2016 7:40 leukocyte on in PM s in source Blood by data Automated count Platelet 7.4 - fl Normal No Jun 14 mean 10.4 informati 2016 7:40 volume on in PM [Entitic source volume] data in Blood by Automated count Platelets 142 - 424 K/mm3 Normal No Jun 14 informati 2016 7:40 [#/volume on in PM ] in source Blood data Erythrocy 4.6 - 6.2 M/mm3 Normal No Jun 14 mel informati 2016 7:40 [#/volume on in PM ] in source Amniotic data fluid Erythrocy 11.5 - % Normal No Jun 14 te 17.5 informati 2017 7:40 distribut on in PM ion width source [Entitic data volume] by Automated count Leukocyte 4.8 - K/MM3 High No Jun 14 s 10.8 informati 2017 7:40 [#/volume on in PM ] in source Blood data Urinalysis dipstick W Reflex Microscopic panel in Urine Observa Value Referen Units Interpr Notes Date tion ce etation Range Appeara SL CLEAR No No No Jun 05 nce of CLOUDY informa informa informa 2016 Urine tion in [...] No Jun 05 [Mass/vol informati informati informati 2017 6:15 ume] [...] No No Jun 05 [Mass/vol informati informati 2016 6:15 ume] in on [...] strip Leukocy [5 O wbc/hpf No No Jun 05 mel wbc/hpf informa informa 2016 [#/volu ; [...] Normal No Jun 05 Urine informati informati 2017 6:15 on in [...]
--- OUTSIDE RECORDS SUMMARY | 2017-06-16 16:22 | External Medical Summary Rpt | CCD ---
Demographics Preferred Language [place] Marital Status Unknown Christian Affiliation Unknown Race Unknown Ethnic Group Unknown Author Author , [facility] Address Unknown Phone Immunization Unable to retrieve immunization data due to connection failure with Immunization Registry. Please try again later.
--- OUTSIDE RECORDS SUMMARY | 2017-06-16 16:22 | External Medical Summary Rpt | CCD ---
Demographics Preferred Language Sw[place] Marital Status Unknown Rastafarian Affiliation Unknown Race Unknown Ethnic Group Unknown Author Author , [facility] Organization [facility] Address Unknown Phone Immunization Unable to retrieve immunization data due to connection failure with Immunization Registry. Please try again later.
[2017-06-16] MEDS ORDERED: NAPROXEN SODIU500 MG PO (17:38)
[2017-06-16 17:41] VITALS: BP 138/77
== END 2017-06-16 17:42 | disposition home or self-care (01) ==
LOC: ER 15:56
DX: M54.5 Low back pain (principal); G89.29 Other chronic pain; F17.210 Nicotine dependence, cigarettes, uncomplicated; I10 Essential (primary) hypertension

== ENCOUNTER → 2017-08-11 | Outpatient (CLI) | payer MEDICAID ==
--- NOTE | 2017-08-12 09:50 | RADIOLOGY REPORT PS360 ---
EXAM: CERVICAL SPINE 4 OR 5 VIEWS HISTORY: NECK PAIN ORDERING PHYSICIAN: Nazario Forbes MD PATIENT AGE: 51 years COMPARISON: None FINDINGS: Normal alignment. Shortness there is mild degenerative disc disease at C3-C4, C4-C5, and C5-C6. There is 2 mm retrolisthesis of C5 on C6. Small endplate osteophytes are present from C3 to C6. Mild foraminal narrowing noted on the right at C3-C4 and C5-C6 from uncovertebral hypertrophy. No fracture or dislocation. No lytic or blastic change. No evidence of cervical rib. IMPRESSION: Cervical spondylosis with degenerative disc disease and uncovertebral arthropathy as detailed above
== END ==
LOC: RAD 22:31
DX: M54.2 Cervicalgia (principal); R53.1 Weakness